=== PATIENT | male | born 1940 | race Caucasian/White ===

== ENCOUNTER 2019-04-09 11:25 | Emergency (ER) | payer OTHER ==
[2019-04-09 11:33] VITALS: BP 161/110
[2019-04-09] MEDS ORDERED: KETOROLAC 30 MG/1 ML SDV IM ONE (11:39)
--- NOTE | 2019-04-09 11:39 | EDPHY ---
H & P Stated Complaint: recent head cold congestion, L ear pain resolved, now vertigo in am Time Seen by Provider: 04/09/19 11:52 HPI/ROS: CHIEF COMPLAINT: Urine infection HISTORY OF PRESENT ILLNESS: The patient is a 78-year-old man who suffered from sinus congestion and nasal drip last week that seemed to spread into his ear and this week. He was placed on a polymyxin ear drops by his primary care doctor. Is seem to improve to some degree but over the last few days he has noticed mild vertigo and unsteadiness when he gets out of bed in the morning. It typically resolves after couple of moments. No headache. No fever. No focal weakness or deficits. He is here asking for antibiotics and states that he needs to be at work in 10 min and does not want to have workup. Severity: Moderate Modifying factors: None REVIEW OF SYSTEMS: Constitutional: denies: chills, fever, recent illness, recent injury EENTM: See HPI Respiratory: denies: cough, shortness of breath Cardiac: denies: chest pain, irregular heart rate, lightheadedness, palpitations Gastrointestinal/Abdominal: denies: abdominal pain, diarrhea, nausea, vomiting, blood streaked stools Genitourinary: denies: dysuria, frequency, hematuria, pain Musculoskeletal: denies: joint pain, muscle pain Skin: denies: lesions, rash, jaundice, bruising Neurological: denies: headache, numbness, paresthesia, tingling, dizziness, weakness Hematologic/Lymphatic: denies: blood clots, easy bleeding, easy bruising Immunologic/allergic: denies: HIV/AIDS, transplant 10 systems reviewed and negative except as noted EXAM: GENERAL: Well-appearing, well-nourished and in no acute distress. HEAD: Atraumatic, normocephalic. EYES: Minimal nystagmus to the left that fatigues, Pupils equal round and reactive to light, extraocular movements intact, sclera anicteric, conjunctiva are normal. ENT: Left tympanic membrane with effusion and mild erythema, nares patent, oropharynx clear without exudates. Moist mucous membranes. NECK: Normal range of motion, supple without lymphadenopathy or JVD. LUNGS: Breath sounds clear to auscultation bilaterally and equal. No wheezes rales or rhonchi. HEART: Regular rate and rhythm without murmurs, rubs or gallops. ABDOMEN: Soft, nontender, normoactive bowel sounds. No guarding, no rebound. No masses appreciated. BACK: No CVA tenderness, no spinal tenderness, step-offs or deformities EXTREMITIES: Normal range of motion, no pitting or edema. No clubbing or cyanosis. NEUROLOGICAL: Cranial nerves II through XII grossly intact. Normal speech, normal gait. 5/5 strength, normal movement in all extremities, normal sensation , normal reflexes ambulates without difficulty. Able to walk heel to toe. PSYCH: Normal mood, normal affect. SKIN: Warm, dry, normal turgor, no visible rashes or lesions. Source: Patient Exam Limitations: No limitations - Medical/Surgical History Hx Asthma: No Hx Chronic Respiratory Disease: No Hx Diabetes: No Hx Cardiac Disease: No Hx Renal Disease: No Hx Cirrhosis: No Hx Alcoholism: No Hx HIV/AIDS: No Hx Splenectomy or Spleen Trauma: No Other PMH: A-Fib episode x1 2014 - Family History Significant Family History: No pertinent family hx - Social History Smoking Status: Never smoked Alcohol Use: Sober Drug Use: None Constitutional: Initial Vital Signs Temperature (C) 37.0 C 04/09/19 11:30 Heart Rate 78 04/09/19 11:30 Respiratory Rate 16 04/09/19 11:30 Blood Pressure 161/110 H 04/09/19 11:30 O2 Sat (%) 97 04/09/19 11:30 O2 Delivery Mode Room Air Allergies/Adverse Reactions: No Known Allergies Allergy (Unverified 04/05/16 10:51) Home Medications: Medication Instructions Recorded Reubens-3 Fatty Acids [Fish Oil 1000 2,000 mg PO DAILY 04/05/16 mg (*)] Azithromycin 250 mg PO DAILY #4 tablet 04/09/19 Medical Decision Making ED Course/Re-evaluation: The patient does not wish to have any workup done. We discussed the limitations without performing imaging a getting any blood work. Patient understands and is willing to accept these risks. He is asking for antibiotics. Will give him a dose of azithromycin now in a prescription. Discussed strict return precautions. Will have him follow up with ENT as well. Differential Diagnosis: Partial list of the Differential diagnosis considered include but were not limited to; otitis media, vestibular neuritis, abscess, thrombosis, benign positional vertigo and although unlikely based on the history and physical exam , I also considered dissection, ischemia. I discussed these differential diagnoses and the plan with the patient as well as the usual and expected course. The patient understands that the diagnosis is provisional and that in medicine we are not always correct and that further workup is often warranted. Usual and customary warnings were given. All of the patient's questions were answered. The patient was instructed to return to the emergency department should the symptoms at all worsen or return, otherwise to followup with the physician as we discussed. - Data Points Medications Given: Discontinued Medications Azithromycin (Zithromax) 500 mg PO EDNOW ONE PRN Reason: Protocol Stop: 04/09/19 11:52 Last Admin: 04/09/19 11:55 Dose: 500 mg Departure - Departure Disposition: Home, Routine, Self-Care Clinical Impression: Vertigo Otitis media Qualifiers: Otitis media type: unspecified Laterality: left Qualified Code(s): H66.92 - Otitis media, unspecified, left ear Condition: Fair Instructions: Vertigo (ED), Ear Infection (ED) Referrals: NONE *PRIMARY CARE P,. [Primary Care Provider] - As per Instructions Braxton Blackman, PAC [Physician Mortgage Loan [employer]] - As per Instructions Prescriptions: Azithromycin 250 mg PO DAILY #4 tablet
[2019-04-09] MEDS ORDERED: AZITHROMYCIN 250 MG TAB PO ONE (11:51)
== END 2019-04-09 11:58 | disposition home or self-care (01) ==
DX: R42 Dizziness and giddiness (principal); H66.92 Otitis media, unspecified, left ear